=== PATIENT | female | born 1970 | race Caucasian/White ===

== ENCOUNTER 2017-06-28 15:07 | Emergency (ER) | payer OTHER ==
[~2017-06-28] VITALS: Ht 167.6 cm; Wt 122.7 kg
[~2017-06-28 15:07] MED LIST: ALBU17AE27 IH; CIME400T PO
[2017-06-28] MEDS ORDERED: LISI1TAB9 PO (15:12)
[2017-06-28] MEDS ORDERED: FLUN8.9H IH (15:12)
[2017-06-28] MEDS ORDERED: IBUP-2071 PO (15:12)
[2017-06-28] MEDS ORDERED: OMEP20 PO (15:12)
[2017-06-28] MEDS ORDERED: ALBUTEROL SULFATE 2.5 MG/0.5 ML NEB SOLUTION NEB ONE ×2 (15:15→15:30)
[2017-06-28] MEDS ORDERED: IPRATROPIUM BROMIDE 0.5 MG/2.5 ML NEB SOLUTION NEB ONE ×3 (15:30→17:15)
[2017-06-28 17:08] LABS: INFLUENZA TYPE A NEGATIVE FOR TYPE A (NEGATIVE); INFLUENZA TYPE B NEGATIVE FOR TYPE B (NEGATIVE)
[2017-06-28] MEDS ORDERED: ALBUTEROL SULFATE 5 MG/ML 20 ML NEB SOLN [BULK] NEB ONE (17:15)
[2017-06-28] MEDS ORDERED: LEVOFLOXACIN 250 MG TABLET PO ONE (18:15)
[2017-06-28 19:47] VITALS: BP 131/90
== END 2017-06-28 19:49 | disposition home or self-care (01) ==
LOC: EMS 15:08
DX: J44.1 Chronic obstructive pulmonary disease with (acute) exacerbation (principal); J45.909 Unspecified asthma, uncomplicated; F17.210 Nicotine dependence, cigarettes, uncomplicated
CPT/HCPCS: 71046; 87804; 94640; 99285; J7611; J7613

== ENCOUNTER 2018-07-28 09:19 | Emergency (ER) | payer OTHER ==
[~2018-07-28] VITALS: Ht 167.6 cm; Wt 127.3 kg
[~2018-07-28 09:19] MED LIST changes: -CIME400T PO; +FLUN8.9H IH; +IBUP-2071 PO; +LISI1TAB9 PO; +OMEP20 PO
[2018-07-28] MEDS ORDERED: GuaiFENesin/D-METHORPHAN [SUGAR-FREE] 200-20MG/10 ML SYRUP UDCUP PO ONE (09:30)
[2018-07-28] MEDS ORDERED: IPRATROPIUM BROMIDE 0.5 MG/2.5 ML NEB SOLUTION NEB ONE (09:30)
[2018-07-28] MEDS ORDERED: ALBUTEROL SULFATE 2.5 MG/0.5 ML NEB SOLUTION NEB ONE (09:30)
[2018-07-28] MEDS ORDERED: PredniSONE 20 MG TABLET PO ONE (10:00)
[2018-07-28 11:46] VITALS: BP 140/81
== END 2018-07-28 11:47 | disposition home or self-care (01) ==
LOC: EMS 09:21
DX: J40 Bronchitis, not specified as acute or chronic (principal); R11.10 Vomiting, unspecified; F41.9 Anxiety disorder, unspecified; F17.210 Nicotine dependence, cigarettes, uncomplicated; Z79.899 Other long term (current) drug therapy
CPT/HCPCS: 71046; 94640; 99283; J7512